=== PATIENT | female | born 1970 | race Caucasian/White ===

== ENCOUNTER 2019-07-21 12:36 | Emergency (ER) | payer OTHER ==
--- OUTSIDE RECORDS SUMMARY | 2019-07-21 13:48 | XMS REPORT | Continuity of Care Document ---
:1970 External Reference #:[id number] Author Name Filipe Pitts M.D. (transmitted by agent of provider Ellen Landrum) Address [address] [place] [address] Care Team Providers Name Role Phone Yadiel Shepherd MD - Family Medicine Care Team Information Service Manager Problems Active Problems Provider Date Head and neck swelling Filipe Pitts M.D. Onset: 09/10/2011 Hypothyroidism Filipe Pitts M.D. Onset: 09/10/2011 Temporomandibular joint disorder Filipe Pitts M.D. Onset: 09/10/2011 Muscle strain Onset: 02/27/2016 Social History Type Date Description Comments Sex Unknown Tobacco Use Start: Unknown End: Unknown Used To Smoke Cigarettes But Quit. ETOH Use Moderate Allergies, Adverse Reactions, Alerts Active Allergies Reaction Severity Comments Date PCN 08/05/2007 Penicillins 06/09/2014 Morphine 08/05/2007 Medications Active Medications SIG Qnty Indications Ordering Provider Date Omeprazole one tab po qd 30tabs Filipe Pitts M.D. 05/27/2019 20mg Tablets Famotidine 1 by mouth 30tabs Filipe Pitts M.D. 05/26/2019 20mg Tablets every day Atorvastatin Calcium Daily Unknown 40mg Tablets Synthroid 1 by mouth 90tabs Filipe Pitts M.D. 100mcg Tablets every day Citalopram Once Daily Unknown Hydrobromide 40mg Tablets Lasix 1 by mouth Unknown 20mg Tablets every day History Medications Omeprazole 1 by mouth every 30caps Filipe Pitts, 05/26/2019 - 20mg Capsules day M.D. 05/27/2019 Omeprazole 1 by mouth every 30caps Filipe Pitts, 05/13/2019 - 40mg Capsules day M.D. 05/26/2019 Clindamycin HCL 1 by mouth twice 14caps Filipe Pitts, 01/25/2019 - 300mg a day for 7 days M.D. 05/12/2019 Capsules Percocet 1-2 by mouth four 20tabs Filipe Pitts, 01/11/2019 - 5-325mg Tablets times a day as M.D. 01/25/2019 needed for pain Medications Administered in Office Medication SIG Qnty Indications Ordering Provider Date Depomedrol 40md/1cc Filipe Pitts M.D. 05/13/2019 Injection Immunizations Description No Information Available Vital Signs Date Vital Result Comment 06/15/2019 9:41am Weight 256.00 lb Height 59.75 inches 4'11.75" BMI (Body Mass Index) 50.4 kg/m2 BP Systolic 90 mmHg BP Diastolic 59 mmHg Heart Rate 70 /min O2 % BldC Oximetry 95 % Body Temperature 98.4 F Pain Level 5 05/13/2019 8:38am Weight 252.00 lb Height 59.75 inches 4'11.75" BMI (Body Mass Index) 49.6 kg/m2 BP Systolic 93 mmHg BP Diastolic 61 mmHg Heart Rate 75 /min O2 % BldC Oximetry 96 % Body Temperature 97.4 F Pain Level 5 Shoulder Results Test Acquired Date Facility Test Result H/L Range Note Laboratory test 01/11/2019 [facility] Surgical SEE RESULT [address] [place] [address] [phone] TSH+Free T4 12/18/2018 [facility] TSH (Thyroid 1.59 Normal 0.34-5.[address] Stim Horm) mcIU/mL [place], [place] [id number] [phone] Free T4 (Free Thyroxine) 1.14 ng/dL High 0.61-1.12 3 1 SEE RESULT BELOW Name: SOO MENSAH : [address]: Filipe Pitts MD Acct: [id number] Unit: [id number] AGE: 48 Location: [facility] Re01/11/19 SEX: F Status: REG REF SPEC: [id number] VINICIO: 01/11/19 [facility] DR: Filipe Pitts MD REQ: [id number] RECD: 01/11/19 STATUS: SOUT _ ORDERED: Matthew, LEVEL 3 COMMENTS: [id number] FINAL DIAGNOSIS Mandible, right, biopsy: -- Acute osteomyelitis with numerous actinomyces colonies. CLINICAL HISTORY No history given GROSS DESCRIPTION The specimen is received in formalin labeled, Infected Mandible Biopsy, Right , and consists of a 1.7 x 0.5 by up to 0.3 cm christina-pink irregular to elliptical bone fragment which is serially sectioned and entirely submitted in one cassette following decalcification. Signed by and Reported on: Bebe Gunter MD 01/13/19 1043 END OF REPORT DEPARTMENT OF PATHOLOGY, [address] [place] [address] Baljit Baird M.D. Director [facility] # [id number] 2 [id number] Procedures Date Code Description Status 05/13/2019 75851 Fiberoptic Laryngoscopy,Diag. Completed 05/13/2019 39659 Aspiration/Injection joint Completed intermediate(wrist/ankle/elbow/olbursa 01/11/2019 40736 Excision Of The Bone, Mandible Completed 01/11/2019 88891 Adj.Tiss.Transf/10SQ CM Or Less Completed 01/11/2019 54066 Anesthesia, Facial Bone Surgery Not Otherwise Spec Completed 12/18/2018 73620 Ultrasound Head/Neck Completed Medical Devices Description No Information Available Encounters Type Date Location Provider Dx Diagnosis Office Visit 05/13/2019 Main Office Filipe Pitts M.D. M27.2 Inflammatory 9:00a conditions of jaws K21.9 Gastro-esophageal reflux disease without esophagitis M26.601 Right temporomandibular joint disorder, unspecified Office Visit 12/18/2018 7:45a Main Office Filipe Pitts M27.2 Inflammatory Juliana conditions of jaws E03.9 Hypothyroidism, unspecified E06.9 Thyroiditis, unspecified G47.33 Obstructive sleep apnea (adult) (pediatric) Assessments Date Code Description Provider 05/13/2019 M27.2 Inflammatory conditions of jaws Filipe Pitts M.D. 05/13/2019 K21.9 Gastro-esophageal reflux disease without Filipe Pitts M.D. esophagitis 05/13/2019 M26.601 Right temporomandibular joint disorder, Filipe Pitts M.D. unspecified 02/03/2019 M27.2 Inflammatory conditions of jaws Filipe Pitts M.D. 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 12/18/2018 M27.2 Inflammatory conditions of jaws Filipe Pitts M.D. 12/18/2018 E03.9 Hypothyroidism, unspecified Filipe Pitts M.D. 12/18/2018 E06.9 Thyroiditis, unspecified Filipe Pitts M.D. 12/18/2018 G47.33 Obstructive sleep apnea (adult) (pediatric) Filipe Pitts M.D. Plan of Treatment No Information Available Functional Status Description No Information Available Mental Status Description No Information Available Referrals Refer to Dr Reason for Referral Status Appt Date Filipe Pitts M.D. NO AUTH REQ FOR SURGERY Created [address] [place] [address] [phone] Filipe Pitts M.D. AUTH FOR ULTRASOUND Created [address] [place] [phone]
--- OUTSIDE RECORDS SUMMARY | 2019-07-21 13:48 | XMS REPORT | Continuity of Care Document ---
:1970 External Reference #:[id number] Author Name Josefina Aragon MD Address [address] [place] [address] Care Team Providers Name Role Phone Filipe Pitts MD - Otolaryngology Care Team Information Java J2Ee Lead Yadiel Shepherd MD - Family Medicine Care Team Information Java J2Ee Lead Arthur Barger MD - Obstetrics & Care Team Information Java J2Ee Lead [phone] Gynecology Problems Active Problems Provider Date Hyperlipidemia Cinthia Alves M.D. Onset: 03/07/2011 Type 2 diabetes mellitus Cinthia Alves M.D. Onset: 09/16/2011 Hypothyroidism Cinthia Alves M.D. Onset: 03/07/2011 Obesity Cinthia Alves M.D. Onset: 03/07/2011 Essential hypertension Yadiel Shepherd MD Onset: 03/24/2019 Social History Type Date Description Comments Sex Unknown Tobacco Use Start: Unknown End: Quit 1995 Unknown ETOH Use Currently consumes alcohol and weekends socially Tobacco Use Start: Unknown End: Patient is a former smoker Unknown Recreational Drug Use Former Drug User Tobacco Use Start: Unknown Quit 1994 Smoking Status Reviewed: 05/28/19 Quit 1994 Allergies, Adverse Reactions, Alerts Active Allergies Reaction Severity Comments Date Penicillin 08/19/2012 Morphine 08/19/2012 Medications Active Medications SIG Qnty Indications Ordering Date Provider Blood Glucose check blood 1units Olivia Mcdaniels, 09/02/2017 Monitoring System sugars fasting M.D. in in the W/Device Kit morning dx. e11.9 Blood Glucose Test test sugars in 100units Olivia Mcdaniels, 09/02/2017 in the morning M.D. Strips e11.9 Furosemide Take 1 To 2 90tabs I10 Angie Jerry, 04/30/2017 40mg Tablets Tablets By Mouth Once Daily as Needed For Swelling *Maximum Of 2 Daily* Freestyle Lancets use to check 100unlorie Alves, 11/10/2015 [facility] [place] blood sugar dx: Juliana Vicente e11.9 Freestyle Lite Blood use to check 1unlorie Alves, 11/10/2015 Glucose Monitoring blood sugar Dx Juliana Vicente System E11.9 Device Freestyle Lite Test test blood sugar 100unlorie Mccannkins, 11/10/2015 twice a day DX Juliana Vicente Strips E11.9 Levothyroxine Sodium Take 1 Tablet By 30tabs Olivia Mcdaniels, 05/10/2014 Mouth Once Daily MGina 100mcg Tablets Atorvastatin Calcium Take 1 Tablet By 90tabs Yadiel Shepherd MD 03/01/2013 Mouth Once Daily 40mg Tablets Onetouch Ultra Blue use to test 100unlorie Alves, 09/16/2011 blood sugar Juliana Vicente Strips twice a day Citalopram Take 1 Tablet By 90tabs Antonella Cantrell, Hydrobromide Mouth Once Daily PNP-BC, SPEECH WRITER, 40mg Ibclc Tablets Medications Administered in Office Medication SIG Qnty Indications Ordering Provider Date Depomedrol 40mg/1cc Josefina Aragon MD 04/06/2019 (methylprednisolone acetate) Injection PPD Cinthia Alves M.D. 02/22/2015 Injection Immunizations CPT Code Status Date Vaccine Lot # [id number] Given 03/24/2019 Influenza Virus Vaccine, Quadrivalent, 36 Mos+, [id number] .5ML 98835 Given 03/03/2018 Influenza Virus Vaccine, Quadrivalent, 36 Mos+, [id number] .5ML 86444 Given 02/06/2017 Influenza Virus Vaccine Quadrivalent Iiv4 [place] [id number] [address] Given 02/08/2016 Influenza Virus Vaccine Split Virus Use For Individual 3Yr Older [id number] Given 02/22/2015 Influenza Vaccine (Fluzone) Age 3 And Older [id number] 01420 Given 02/22/2015 Pneumococcal Conjugate Vaccine 13 Valent For [id number] Intramuscular Use 78573 Given 05/10/2014 flu vaccination 03760 Given 02/24/2013 flu vaccination 57874 Given 04/20/2012 flu vaccination 72542 Given 10/29/2011 Tdap injection 22539 Given 03/07/2011 Pneumovax Injection 53255 Given 03/07/2011 flu vaccination 92617 Given 07/14/2009 flu vaccination 33067 Given 07/14/2009 H1N1 Immuniation Adminstration 66414 Given 07/14/2009 H1N1 Immuniation Adminstration Vital Signs Date Vital Result Comment 05/28/2019 7:57am BP Systolic Sitting Left Arm 102 mmHg BP Diastolic Sitting Left Arm 67 mmHg Heart Rate 72 /min 05/19/2019 8:43am BP Systolic Sitting Left Arm 100 mmHg BP Diastolic Sitting Left Arm 61 mmHg Heart Rate 66 /min Results Test Acquired Date Facility Test Result H/L Range Note CBC 04/06/[address] [facility] [address] White Blood 7.7 K/uL Normal 3.1-10.7 1 W/Automated [address] Count Diff [place], [place] [id number] [phone] Red Blood Count 4.26 M/uL Normal 3.90-5.40 Hemoglobin 13.1 gm/dL Normal 11.6-15.8 Hematocrit 40.9 % Normal 36.0-46.1 Mean Cell Volume 96.0 fl Normal 80.9-99.0 Mean Corpuscular HGB 30.8 pg Normal 25.9-32.7 Mean Corpuscular HGB Conc 32.0 g/dL Normal 30.8-34.3 Platelet Count 228 K/uL Normal 155-360 Red Cell Distri Width SD 45.6 fl Normal 36-47 Red Cell Distri Width %CV 13.1 % Normal 11.7-14.4 Mean Platelet Volume 11.6 fl Normal 8.9-12.4 Neut% 53.0 % Normal 40.4-72.8 Lymph % 37.0 % Normal 20.0-42.0 Harlan % 8.0 % Normal 4.3-13.2 Eo% 1.3 % Normal 0.0-6.6 Bas% 0.4 % Normal 0.0-1.1 Immature Grans 0.3 % Normal 0.0-5.0 NRBC % 0.0 /100WBC < 10/ 100 WBC Neut# 4.09 K/uL Normal 1.8-7.0 Lymph # 2.85 K/uL Normal 1.0-4.0 Harlan # 0.62 K/uL Normal 0.3-0.9 Eos # 0.10 K/uL Normal 0.0-0.5 Baso # 0.03 K/uL Normal 0.0-0.1 Immature Grans Absolute 0.02 K/uL NRBC # 0.00 K/uL Comprehensive 04/06/[address] Glucose 85 mg/dL Normal 74-106 Metabolic Panel [address] [place] [address] [phone] BUN 16 mg/dL Normal 7-18 Creatinine 0.8 mg/dL Normal 0.6-1.3 Glom Filtration Rate, Estimate >60 mL/min >60 If >60 mL/min >60 2 BUN/Creat 20.0 ratio Sodium 135 mmol/L Low 136-145 Potassium 3.4 mmol/L Low 3.5-5.1 Chloride 101 mmol/L Normal 98-107 Carbon Dioxide 29 mmol/L Normal 21-32 Anion Gap 5 mEq/L Low 8-16 Calcium 9.2 mg/dL Normal 8.5-10.1 Total Protein 7.5 g/dL Normal 6.4-8.2 Albumin 3.9 g/dL Normal 3.4-5.0 Globulin 3.6 g/dL Normal 1.9-4.3 Alb/Glob 1.1 ratio Bilirubin,Total 0.3 mg/dL Normal 0.2-1.0 Sgot/Ast 21 U/L Normal 15-37 SGPT/Alt 35 U/L Normal 12-78 Alkaline Phosphatase 70 U/L Normal 45-117 Reflex add FT3? Y Reflex add FT4? Y Glycohemoglobin 04/06/[address] Glycohemoglobin 5.9 % Normal 4.2-6.3 3 A1c [address] [facility] (A1c) [place] [address] [phone] eAG 123 mg/dL LDL Cholesterol 04/06/[address] Cholesterol 202 mg/dL High < 200 4 Profile [address] [place] [address] [phone] Triglycerides 182 mg/dL High <150 5 HDL Cholesterol 55 mg/dL >40 6 LDL-Cholesterol 111 mg/dL < 100 7 Reflex add FT3? Y Reflex add FT4? Y TSH Reflex 04/06/2019 [facility] [address] Thyroid Stim 1.63 uIU/mL Normal 0.30-4.20 FT4 And/Or [address] Hormone FT3 [place] [address] [phone] Reflex add FT3? Y Reflex add FT4? Y 1 Z79.899 2 Note: Persistent reduction for 3 months or more in an eGFR <60 mL/min/1.73 m2 defines CKD. Patients with eGFR values >/=60 mL/min/1.73 m2 may also have CKD if evidence of persistent proteinuria is present. The original MDRD equation for estimated GFR is not valid for patients less than 18 years of age. Additional information may be found at www.kdoqi.org. 3 Elevated levels of HbA1c suggest the need for more aggressive treatment of glycemia. The [place] [employer] recommends that a primary goal of therapy should be a HbA1c of <7% and that physicians should re-evaluate the treatment regimen in patients with HbA1c values consistently >8%. 4 Reference Guidelines*: Desirable: ........... < 200 mg/dL Borderline High: ..... 200-239 mg/dL High: ................ >= 240 mg/dL * The National Cholesterol Education Program (NCEP) 5 Reference Guidelines*: Normal: ............. < 150 mg/dL Borderline High: .... 150-199 mg/dL High: ............... 200-499 mg/dL Very High: .......... > 500 mg/dL * Source: National Cholesterol Education Program (NCEP) 6 Reference Guidelines*: Low HDL: ..... < 40 mg/dL Normal: ..... 40-60 mg/dL Desirable: ... > 60 mg/dL *The National Cholesterol Education Program(NCEP) 7 Reference Guidelines*: Optimal:........... <100 mg/dL Near Optimal....... 100-129 mg/dL Borderline High.... 130-159 mg/dL High............... 160-189 mg/dL Very High.......... >=190 mg/dL * Source: National Cholesterol Education Program (NCEP) Procedures Date Code Description Status 04/06/2019 92881 Asp./Injection major joint Completed 11/19/2017 602245095 Diabetic Foot Exam Completed 09/16/2017 85015515 Mammogram Completed Medical Devices Description No Information Available Encounters Type Date Location Provider Dx Diagnosis Office Visit 05/28/2019 Orthopaedic Office Josefina Aragon M75.41 Impingement 8:00a MD syndrome of right shoulder S46.001D Unsp inj musc/tend the rotator cuff of r shoulder, subs Office Visit 05/19/2019 8:45a Orthopaedic Albertina Aragon75.41 Impingement Office MD Josefina syndrome of right shoulder S46.001D Unsp inj musc/tend the rotator cuff of r shoulder, subs Office Visit 04/06/2019 1:45p Orthopaedic Office Josefina Aragon, M25.511 Pain in right MD shoulder M75.41 Impingement syndrome of right shoulder S46.001D Unsp inj musc/tend the rotator cuff of r shoulder, subs Office Visit 03/24/2019 3:10p Family Medicine Yadiel Shepherd, E11.9 Type [address] mellitus without complications M25.511 Pain in right shoulder I10 Essential (primary) hypertension E66.9 Obesity, unspecified E03.9 Hypothyroidism, unspecified Z23 Encounter for immunization Z79.899 Other fdc (current) drug therapy Assessments Date Code Description Provider 05/28/2019 M75.41 Impingement syndrome of right shoulder Josefina Aragon MD 05/28/2019 S46.001D Unspecified injury of muscle(s) and tendon(s) Josefina Aragon MD of the rotator cuff of right shoulder, subsequent encounter 05/19/2019 M75.41 Impingement syndrome of right shoulder Josefina Aragon MD 05/19/2019 S46.001D Unspecified injury of muscle(s) and tendon(s) Josefina Aragon MD of the rotator cuff of right shoulder, subsequent encounter 04/06/2019 M25.511 Pain in right shoulder Josefina Aragon MD 04/06/2019 M75.41 Impingement syndrome of right shoulder Josefina Aragon MD 04/06/2019 S46.001D Unspecified injury of muscle(s) and tendon(s) Josefina Aragon MD of the rotator cuff of right shoulder, subsequent encounter 03/24/2019 E11.9 Type 2 diabetes mellitus without complications Yadiel Shepherd MD 03/24/2019 M25.511 Pain in right shoulder Yadiel Shepherd MD 03/24/2019 I10 Essential (primary) hypertension Yadiel Shepherd MD 03/24/2019 E66.9 Obesity, unspecified Yadiel Shepherd MD 03/24/2019 E03.9 Hypothyroidism, unspecified Yadiel Shepherd MD 03/24/2019 Z23 Encounter for immunization Yadiel Shepherd MD 03/24/2019 Z79.899 Other fdc (current) drug therapy Yadiel Shepherd MD Plan of Treatment Future Appointment(s):07/22/2019 8:30 am - Josefina Aragon MD at Orthopaedic [id number]/27/2019 9:10 am - Yadiel Shepherd MD at [facility] RD2019 - Josefina Aragon, MDM75.41 Impingement syndrome of right ckfmvmfkT37.001D Unspecified injury of muscle(s) and tendon(s) of the rotator cuff of right shoulder, subsequent encounter Functional Status Description No Information Available Mental Status Description No Information Available Referrals Description No Information Available
[2019-07-21 13:57] VITALS: BP 92/51
--- NOTE | 2019-07-21 14:29 | UC ---
Throat Pain/Nasal Roderick HPI - HPI Summary HPI Summary: 49-year-old female who started experiencing some cold and flu symptoms over a week ago. She works in the custodial. She denies any fever or chills at this point time. No further vomiting or diarrhea. She does have a cough with mild wheezing. She also has sinus pressure and nasal congestion. - History of Current Complaint Chief Complaint: UCGeneralIllness Stated Complaint: FEVER,ST,COUGH,VOMITING Time Seen by Provider: 07/21/19 13:52 Hx Obtained From: Patient ?: No Onset/Duration: Gradual Onset, Lasting Days Severity: Mild Pain Intensity: 0 Cough: Nonproductive Associated Signs & Symptoms: Positive: Sinus Discomfort, Nasal Discharge - Allergies/Home Medications Allergies/Adverse Reactions: Allergies Allergy/AdvReac Type Severity Reaction Status Date / Time Penicillins Allergy Hives Verified 07/21/19 13:50 Home Medications: Home Medications Atorvastatin* [Lipitor*] 40 mg PO DAILY 07/21/19 [History Confirmed 07/21/19] Citalopram TAB* [CeleXA TAB*] 40 mg PO DAILY 07/21/19 [History Confirmed ] DOXYcycline CAP(*) [DOXYcycline 100MG CAP(*)] 100 mg PO BID 10 Days #20 cap [Rx] Furosemide TAB* [Lasix TAB*] 40 mg PO DAILY 07/21/19 [History Confirmed 07/21/19 ] Levothyroxine TAB* [Synthroid TAB*] 100 mcg PO DAILY 07/21/19 [History Confirmed 07/21/19] PMH/Surg Hx/FS Hx/Imm Hx Previously Healthy: Yes Endocrine History: Diabetes, Thyroid Disease - Surgical History Surgical History: Yes Surgery Procedure, Year, and Place: x4. hysterectomy. R knee. hernia repair x3. throat. jaw x2 (r/t bone infection) - Family History Known Family History: Positive: Unknown - Social History Occupation: Employed Full-time Lives: With Family Alcohol Use: Occasionally Substance Use Type: None Smoking Status (MU): Former Smoker When Did the Patient Quit Smoking/Using Tobacco: 1994 Review of Systems All Other Systems Reviewed And Are Negative: Yes Constitutional: Positive: Fever - The patient had been ill for one week and the past 24 hours she's had a fever of 101 with a congested cough. ENT: Positive: Sore Throat, Nasal Discharge, Sinus Congestion Respiratory: Positive: Cough Is Patient Immunocompromised?: No Physical Exam Triage Information Reviewed: Yes Appearance: Well-Appearing, No Pain Distress, Well-Nourished Vital Signs: Initial Vital Signs Temp 98.5 F 07/21/19 13:51 Pulse 74 07/21/19 13:51 Resp 18 07/21/19 13:51 BP 92/51 07/21/19 13:51 Pulse Ox 97 07/21/19 13:51 Vital Signs Reviewed: Yes Eyes: Positive: Conjunctiva Clear ENT: Positive: Pharynx normal - Yellow thick postnasal drainage., Nasal congestion, Nasal drainage, TMs normal, Sinus tenderness, Uvula midline Neck: Positive: Supple, Nontender, No Lymphadenopathy Respiratory: Positive: No respiratory distress, No accessory muscle use, Rhonchi - Rhonchi in the left lower lobe posteriorly, no distress. Good air movement throughout the rest of the lung patiño. Cardiovascular: Positive: RRR, No Murmur, Pulses Normal, Brisk Capillary Refill Musculoskeletal Exam: Normal Neurological Exam: Normal Psychological Exam: Normal Skin Exam: Normal Throat Pain/Nasal Course/Dx - Course Course Of Treatment: Patient is comfortable here. I am going to treated for doxycycline which would also cover possible left lower lobe pneumonia. She preferred not have a chest x -ray. 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 - Differential Dx/Diagnosis Provider Diagnosis: Sinusitis Discharge ED - Sign-Out/Discharge Documenting (check all that apply): Patient Departure All imaging exams completed and their final reports reviewed: No Studies - Discharge Plan Condition: Good Disposition: HOME Prescriptions: DOXYcycline CAP(*) [DOXYcycline 100MG CAP(*)] 100 mg PO BID 10 Days #20 cap Patient Education Materials: Sinusitis (ED) Forms: *Work Release Referrals: Yadiel Shepherd MD [Primary Care Provider] - Additional Instructions: No dairy products, antacids or multivitamins or multivitamins supplements 2 hours before you take the doxycycline and 2 hours after however definitely take it with food. Definite follow-up with your primary care provider in 5-7 days if no improvement - Billing Disposition and Condition Condition: GOOD Disposition: Home
== END 2019-07-21 14:37 | disposition home or self-care (01) ==
LOC: UCCORT 12:36
DX: J32.9 Chronic sinusitis, unspecified (principal); R05 Cough; J02.9 Acute pharyngitis, unspecified; E11.9 Type 2 diabetes mellitus without complications; E07.9 Disorder of thyroid, unspecified; Z88.0 Allergy status to penicillin; Z87.891 Personal history of nicotine dependence; Z79.890 Hormone replacement therapy
CPT/HCPCS: 87651; 99212; G0463